=== PATIENT | female | born 1990 | race Caucasian/White ===

== ENCOUNTER 2019-10-27 13:28 | Emergency (ER) | payer BC ==
[2019-10-27 13:51] VITALS: BP 111/60
--- NOTE | 2019-10-27 13:51 | UC ---
Throat Pain/Nasal Meño HPI - HPI Summary HPI Summary: 29 yo female presents with 2 complaints: 1) Was exposed to strep about 4-5 days ago. Last night pt had a very mild sore throat and felt warm - feels better today. Is asking for a strep test today. Nothing OTC for symptoms. Denies fever, chills, sinus symptoms, cough, rash, abdominal pain, n/v. She is eating, drinking, and tolerating po without difficulty. 2) For the last month has had small red bump in her left inguinal region. Has never enlarged or been painful. No drainage. - History of Current Complaint Chief Complaint: UCGeneralIllness Stated Complaint: SORE THROAT Time Seen by Provider: 10/27/19 13:51 Hx Obtained From: Patient Hx Last Menstrual Period: 10/26/19 Onset/Duration: Sudden Onset Severity: Mild Pain Intensity: 1 Pain Scale Used: 0-10 Numeric - Allergies/Home Medications Allergies/Adverse Reactions: Allergies Allergy/AdvReac Type Severity Reaction Status Date / Time No Known Allergies Allergy Verified 10/27/19 13:51 Home Medications: Home Medications Cabergoline 0.25 mg PO WEEKLY 10/27/19 [History Confirmed 10/27/19] PMH/Surg Hx/FS Hx/Imm Hx - Additional Past Medical History Additional PMH: None - Surgical History Surgical History: None Surgery Procedure, Year, and Place: DENIES - Family History Known Family History: Positive: None - Social History Occupation: Employed Full-time Lives: With Family Alcohol Use: None Substance Use Type: None Smoking Status (MU): Never Smoked Tobacco Review of Systems All Other Systems Reviewed And Are Negative: No Constitutional: Positive: Negative Skin: Positive: Other - red bump groin Eyes: Positive: Negative ENT: Positive: Sore Throat Respiratory: Positive: Negative Cardiovascular: Positive: Negative Gastrointestinal: Positive: Negative Neurological: Positive: Negative Psychological: Positive: Negative Physical Exam - Summary Physical Exam Summary: GENERAL: NAD. WDWN. No pain distress. SKIN: LEFT inguinal region with 4mm diameter area of faint erythema that is flat , nttp, and no warmth. Appears to be old scar HEENT: Head: AT/NC Eyes: EOM intact. Conjunctiva clear without inflammation or discharge. Ears: Hearing grossly normal. TMs intact, no bulging, erythema, or edema. Nose: Nasal mucosa pink and moist. NTTP maxillary and frontal sinus. Throat: Posterior oropharynx without exudates, erythema, or tonsillar enlargement. Uvula midline. NECK: Supple. Nontender. No lymphadenopathy. CHEST: CTAB. No accessory muscle use. Breathing comfortably and in no distress. CV: RRR. Pulses intact. Cap refill <2seconds NEURO: Alert. PSYCH: Age appropriate behavior. Triage Information Reviewed: Yes Vital Signs: Initial Vital Signs Temp 96.2 F 10/27/19 13:48 Pulse 69 10/27/19 13:48 Resp 20 10/27/19 13:48 BP 111/60 10/27/19 13:48 Pulse Ox 98 10/27/19 13:48 Vital Signs Reviewed: Yes Throat Pain/Nasal Course/Dx - Course Course Of Treatment: POC strep negative. Regarding the area in her groin, this appears that it was a small abscess that resolved and has some scarring of the superficial skin tissue. Advised to continue to monitor the area and f/u if it changes - Differential Dx/Diagnosis Provider Diagnosis: Sore throat Discharge ED - Sign-Out/Discharge Documenting (check all that apply): Patient Departure All imaging exams completed and their final reports reviewed: No Studies - Discharge Plan Condition: Stable Disposition: HOME Patient Education Materials: Pharyngitis (ED) Referrals: Flores Aguilera MD [Primary Care Provider] - Additional Instructions: Your strep test was negative today Your symptoms are likely from a viral infection. Viral infections do not respond to antibiotics and are limited to the treatment of symptoms. Viral infections typically run their course in 7-10 days. Drink plenty of fluids, especially if you are running any fever. Use salt water gargles several times a day. Take over the counter acetaminophen (Tylenol) or ibuprofen (Advil, Motrin) according to directions as needed for pain or fever. You may also use Chloraseptic spray or Cepacol lonzenges according to directions which contain a numbing medication and can provide some temporary relief from a sore throat. Return here or follow up with your primary care provider in 7 days if symptoms persist. - Billing Disposition and Condition Condition: STABLE Disposition: Home
== END 2019-10-27 14:19 | disposition home or self-care (01) ==
LOC: UCEAST 13:28
DX: J02.9 Acute pharyngitis, unspecified (principal)
CPT/HCPCS: 87651; 99211; G0463

== ENCOUNTER 2019-11-12 05:37 | Day surgery (SDC) | payer BC ==
[~2019-11-12 05:37] MED LIST: Buffered Lidocaine 1% SYRIN* 1 ML/SYRINGE INTRADERM ONE
[2019-11-12] MEDS ORDERED: HYDROmorphone INJ1* 1 MG/ML SYRINGE IV PRN (05:50)
[2019-11-12] MEDS ORDERED: oxyCODONE TAB* 5 MG TAB PO PRN (05:50)
[2019-11-12] MEDS ORDERED: Scopolamine 1.5 mg* PATCH TRANSDERM PRN (05:50)
[2019-11-12] MEDS ORDERED: fentaNYL* 50 MCG/ML 2 ML VIAL (100 MCG VIAL) IV PRN (05:50)
[2019-11-12] MEDS ORDERED: PROCHLORPERAZINE INJ 5 MG/ML 2 ML VIAL IV PRN (05:50)
[2019-11-12] MEDS ORDERED: Naloxone* 0.4 MG/ML 1 ML VIAL IV PRN (05:50)
[2019-11-12] MEDS ORDERED: DiMENhydriNATE IV* 50 MG/ML VIAL IV PUSH PRN (05:50)
[2019-11-12] MEDS ORDERED: Ondansetron ODT TAB* 4 MG ONE (05:51)
[2019-11-12] MEDS ORDERED: Famotidine IV* 10 MG/ML 2 ML (20 mg) ONE (05:51)
[2019-11-12] MEDS ORDERED: Dexamethasone TAB* 4 MG ONE (05:51)
[2019-11-12] MEDS ORDERED: Dexamethasone TAB* 4 MG PO ONE (06:00)
[2019-11-12] MEDS ORDERED: Famotidine IV* 10 MG/ML 2 ML (20 mg) IV ONE (06:00)
[2019-11-12] MEDS ORDERED: Lactated Ringers 1000 ML Bag* 1,000 ML IV SCH (06:00)
[2019-11-12] MEDS ORDERED: Ondansetron ODT TAB* 4 MG PO ONE (06:00)
[2019-11-12] MEDS ORDERED: Bupivacaine 0.5%* 50 ML MDV VIAL ONE (07:08)
[2019-11-12] MEDS ORDERED: KETAMINE HCL* 50 MG/ML 10 ML VIAL ONE (07:14)
[2019-11-12] MEDS ORDERED: Midazolam* 1 MG/ML 5 ML VIAL (5 MG) ONE (07:14)
[2019-11-12] MEDS ORDERED: fentaNYL* 50 MCG/ML 2 ML VIAL (100 MCG VIAL) ONE ×2 (07:14→08:55)
[2019-11-12] MEDS ORDERED: Acetaminophen IV 1GM/100ML * 100 ML ONE (07:54)
[2019-11-12] MEDS ORDERED: Propofol* 10 MG/ML 20 ML BTL ONE (07:54)
[2019-11-12] MEDS ORDERED: Ketorolac INJ* 30 MG/ML 1 ML VIAL ONE (07:54)
[2019-11-12] MEDS ORDERED: ROPIVACAINE 5 MG/ML 30 ML BTL (0.5%) ONE (08:24)
[2019-11-12] MEDS ORDERED: Lidocaine 2% PF * 5 ML VIAL ONE (08:24)
[2019-11-12] MEDS ORDERED: HYDROmorphone INJ1* 1 MG/ML SYRINGE ONE (09:42)
--- NOTE | 2019-11-12 12:10 | OP ---
Operative Report - Blank - Operative Report Date of Operation: 11/12/19 Note: PATIENT: Ny Quiñonez DATE OF : 1990 DATE OF SURGERY: 11/12/2019 SURGEON: Lit Casper MD REWRITER: REINALDO Owens, whos assistance was necessary for positioning, retraction, help with instrumentation, and closure. ANESTHESIOLOGIST: Dr. 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 POSTOPERATIVE DIAGNOSIS: Left talus cystic osteochondral lesion, left ankle instability and left ankle ganglion cyst. OPERATION: 1. Left tibial osteotomy. 2. Left talar cyst curettage with bone autografting from the proximal tibia. 3. Implantation of juvenile particulated allograft cartilage to the talus. 3. Left ankle modified Brostrom procedure lateral ligament reconstruction. 4. Excision of left ankle ganglion cyst. ANESTHESIA: General + block IMPLANTS: Three arthrex 4.0mm screws TOURNIQUET TIME: 2 hours with a well-padded thigh tourniquet at 250 mmHg SPECIMENS: none ESTIMATED BLOOD LOSS: minimal COMPLICATIONS: none STATUS: Stable from the operating room to the recovery room and then home. INDICATIONS FOR PROCEDURE: Ny has had persistent left ankle pain and instability. Both operative and non operative treatment alternatives were reviewed. Further, the nature and risks of surgery were reviewed in careful detail, in the office as well as the pre-operative holding area. Our discussions regarding the risks of surgery included, but were not limited to, infection, wound problems, nerve injury, neuroma, RSD, persistent symptoms, persistent instability, nonunion, malunion, blood clot, arthritis, need for further surgery, failure of the surgery, and even the remote chance of catastrophic complication. DESCRIPTION OF PROCEDURE: The patient was seen in the preoperative holding unit and informed written consent was obtained. The appropriate extremity was marked. The patient was then brought to the operating room and carefully positioned on the operating room table. Anesthesia was induced. All bony prominences were padded with great care. A well-padded thigh tourniquet was placed. A chlorhexidine based pre- scrub was performed followed by a chloraprep prep and drape in standard sterile fashion. A surgical safety pause was then conducted in which we confirmed the appropriate patient, extremity, planned procedure, availability of equipment, indication and administration of prophylactic antibiotics, and DVT prophylaxis in the form of a compression boot on the non-surgical extremity. An Esmarch exsanguination of the limb was then performed and the tourniquet inflated. A medial longitudinal incision was made over the medial malleolus and distal tibia. The entire medial malleolus was exposed in preparation for the osteotomy. Two guide pins were placed parallel to the tibiotalar joint, at the level of the physeal scar. Another guidepin was placed retrograde up the medial malleolus, parallel to the medial gutter. The depths of the guidewires were checked and then the guidewires were overdrilled for later placement of 4.0 mm cannulated screws. I then placed a guidewire obliquely to plan out the osteotomy. This was checked under fluoroscopy. I then used an oscillating saw to osteotomize the medial tibia to the level of the physeal scar, while using cold irrigation. A large Lambotte osteotome was then placed into this osteotomy cut to complete the osteotomy into the tibiotalar joint. This made and an irregular osteochondral surface at the most distal portion of the osteotomy to later ease reduction of the osteotomy at the end of the case. The medial fragment of the osteotomy was windowed open, providing excellent visualization of the medial talus. The osteochondral lesion was easily identified and the cartilage caps was completely loose and delaminated. This cartilage was excised and I used a 15 blade scalpel to remove any overhanging cartilage. I used a 2.4 mm bur to enter into the cyst. There was gelatinous cystic fluid and the cyst. This was all curetted out back to bone. I then used a 2.4 mm bur to roughen up the edges of the cyst, as well as a K wire to drill holes into the bed of the cyst. I then turned my attention to the proximal tibia. A 3 cm incision was made over Gerdy's tubercle. I carefully dissected down to bone. The cortex was windowed with a bur and a curette was used to harvest cancellous autograft. I then irrigated the wound and packed the void with allograft cancellous bone chips. The wound was then closed in a layered fashion. I then turned my attention back to the ankle. The autograft bone was packed into the talar cyst. This was tamped tightly into the cyst. Once this was level with the subchondral bone, I placed some fibrin glue over the bone. I then implanted the juvenile articulated cartilage allograft and added more fibrin glue. We then waited 5 minutes for the fibrin glue to set. I then reduced the tibial osteotomy, and placed two partially threaded 4.0 mm cannulated screws at the physeal scar, which I had already drilled. The saw blade was placed into the oblique osteotomy during fixation of the osteotomy, so as to make sure I had an anatomic reduction. Finally, the fully threaded screw up the medial malleolus was placed. Final fluoroscopic images were obtained confirming excellent placement of the graft as well as anatomic reduction of the tibial osteotomy. The wound was then copiously irrigated. I then made a longitudinal incision overlying the distal fibula. This was made in line with the distal fibula and then curving anteriorly in line with the fourth ray. Dissection was carried down through the soft tissues. Superficial hemostasis was obtained. I dissected down to the lateral aspect of the fibula at the periosteal and ligamentous layer and then dissected anteriorly to expose the anterolateral ankle ligaments. We protected the superficial peroneal nerve at all times, which was not visualized within our field. Once we had adequately exposed a pocket anterior to the ligaments, we sharply took the ligaments down off of the anterior and distal aspect of the fibula using a 15 blade. The inferior extensor retinaculum was exposed and protected for subsequent repair later in the procedure. The ganglion cyst was encountered and excised. The stalk tracking back to the ankle joint was coagulated with electrocautery. I then utilized a rongeur to make a trough along the fibula to receive the reconstructed ligaments. I then utilized 2 Arthrex fiber tack suture anchors to repair the lateral ligaments. These sutures were all passed with great care taken to appropriately tension both the ATFL as well as the CFL in order to get a nice tight repair. We held the ankle in a dorsiflexed and everted position while the ligaments and sutures were tied down. These held the ankle in a much improved position with excellent tension on the ligaments. We further augmented the repair by bringing the inferior extensor retinaculum up to the fibula. There was a much improved anterior drawer at this point as compared to pre-operatively. The wound was copiously irrigated. 0 Vicryl was used to close the sheath around the posterior tibial tendon as well as the periosteum. The wounds were then copiously irrigated. The wounds were then closed in a layered fashion utilizing 3-0 Monocryl and 3-0 nylon. At this point, a sterile dressing was applied and the ankle was splinted in a neutral position. The patient was then awakened from anesthesia and transferred to the recovery room in stable condition. There were no complications. All needle and sponge counts were correct at the end of the case. ATTESTATION: I attest I was present and scrubbed and performed the critical portions of the procedure myself. POSTOPERATIVE PLAN: The patient will remain nonweightbearing for at least six weeks. Follow up will be in two weeks for likely suture removal, Steri-Strip application and transition into a short leg cast. We will use aspirin for DVT prophylaxis.
[2019-11-12] MEDS ORDERED: Scopolamine 1.5 mg* PATCH ONE (12:19)
[2019-11-12 13:24] VITALS: BP 104/67
[2019-11-15] MEDS ORDERED: Scopolamine PATCH Remove* 1 NOTE MISC PATCH OFF ONE (05:51)
== END 2019-11-12 14:13 | disposition home or self-care (01) ==
LOC: OR 05:37
PROVIDERS: ATTEND Orthopaedic Surgery
DX: M93.272 Osteochondritis dissecans, left ankle and joints of left foot (principal); M25.372 Other instability, left ankle; M67.472 Ganglion, left ankle and foot; G89.18 Other acute postprocedural pain
CPT/HCPCS: 81025; A9270-GY; C1713; C1776; J1170; J1885; J2250; J2704; J2795; J3010; J3490; J8540; L8699

== ENCOUNTER 2023-04-29 17:27 | Inpatient (IN) ==
[2023-04-29] MEDS ORDERED: Promethazine INJ(RESTRICTED) 25 MG/ML 1 ml VIAL IV PRN (19:29)
[2023-04-29] MEDS ORDERED: Buffered Lidocaine 1% SYRIN 1 ml INTRADERM ONE (19:29)
[2023-04-29] MEDS ORDERED: Lactated Ringers 1000 ml BAG 1,000 ML IV ONE ×2 (19:29→22:04)
[2023-04-29 20:10] LABS: ABS Basophils 0.1 10^3/uL (0.0-0.1); ABS Lymphocytes 1.2 10^3/uL (1.0-4.8); ABS Monocytes 0.7 10^3/uL (0.0-0.9); ABS Neutrophils 14.9 10^3/uL (1.5-7.6); ABS Nucleated RBC 0.01 10^3/ul; Eosinophil % 0.1 %; Hematocrit 34.4 % (35-45); Hemoglobin 11.3 g/dL (11.5-14.3); Lymphocyte % 7.3 %; Mean Corpuscular Hemoglobin 27.6 pg (27-33); Mean Corpuscular Hgb Conc 32.8 g/dL (31-36); Mean Corpuscular Volume 84.1 fL (80-97); Mean Platelet Volume 8.6 fL (7.5-11.2); Nucleated Red Blood Cells % 0.1 /100 WBC (0.0-0.4); Platelet Count 270 10^3/uL (150-450); Red Blood Count 4.09 10^6/uL (3.63-4.92); Red Cell Distribution Width 16.6 % (12-17); White Blood Count 16.9 10^3/uL (3.8-11.8)
[2023-04-29 20:35] LABS: Urine Benzodiazepine Screen None Detected (None Detect); Urine Cannabinoids Screen None Detected (None Detect); Urine Opiates Screen None Detected (None Detect)
[2023-04-29] MEDS ORDERED: Lidocaine 1.5% EPI 1:200,000 30 ML SDV ONE (21:26)
[2023-04-29] MEDS ORDERED: OBEPIDURAL (200 ML) 200 ML EPIDURAL ONE (21:28)
[2023-04-29] MEDS ORDERED: Sodium Citrate/Citric Acid LIQ 15 ML UDC PO PRN (22:04)
[2023-04-29] MEDS ORDERED: Phenylephrine 40 mcg/mL 10mL (400mcg) SYRINGE IV PUSH PRN ×2 (22:04)
[2023-04-29] MEDS: Lactated Ringers 1000 ml BAG 1,000 ML IV SCH (22:31)
[2023-04-29 22:55] LABS: Urine Appearance Cloudy; Urine Bilirubin Negative (Negative); Urine Blood Negative (Negative); Urine Color Yellow; Urine Glucose Negative (Negative); Urine Ketones Negative (Negative); Urine Nitrite Negative (Negative); Urine Protein 3+(>=500 mg/dL) (Negative); Urine Specific Gravity 1.023 (1.002-1.030); Urine Urobilinogen Negative (Negative)
[2023-04-29 23:00] LABS: Urine Bacteria Absent (Absent); Urine Red Blood Cell 3+(>10/hpf) (Absent); Urine Squamous Epithelial Cell Present (Absent); Urine White Blood Cell Trace(0-5/hpf) (Absent)
[2023-04-29] MEDS ORDERED: Lactated Ringers 1000 ml BAG 1,000 ML IV SCH (23:00)
[2023-04-29] MEDS ORDERED: OBEPIDURAL (200 ML) 200 ML EPIDURAL SCH (23:00)
[2023-04-30] MEDS: Lactated Ringers 1000 ml BAG 1,000 ML IV SCH (01:26)
[2023-04-30] MEDS ORDERED: Oxytocin in LR 0 MILLI.UNIT/0 ML BAG IV ONE (05:04)
[2023-04-30] MEDS ORDERED: Witch Hazel PAD JAR TOPICAL PRN (06:04)
[2023-04-30] MEDS ORDERED: Glycerin ADULT 2.4 gm SUPP PR PRN (06:04)
[2023-04-30] MEDS: Dibucaine 1% OINT 28.35 GM TUBE PR PRN ×2 (06:42→18:11)
[2023-04-30] MEDS ORDERED: Lactated Ringers 1000 ml BAG 1,000 ML IV SCH (07:00)
[2023-05-01 07:08] LABS: ABS Lymphocytes 2.7 10^3/uL (1.0-4.8); ABS Monocytes 0.8 10^3/uL (0.0-0.9); ABS Neutrophils 12.2 10^3/uL (1.5-7.6); Eosinophil % 0.3 %; Hematocrit 26.6 % (35-45); Hemoglobin 8.8 g/dL (11.5-14.3); Mean Corpuscular Hemoglobin 27.8 pg (27-33); Mean Corpuscular Hgb Conc 33.1 g/dL (31-36); Mean Platelet Volume 7.9 fL (7.5-11.2); Platelet Count 194 10^3/uL (150-450); Red Blood Count 3.17 10^6/uL (3.63-4.92); Red Cell Distribution Width 16.6 % (12-17); White Blood Count 15.7 10^3/uL (3.8-11.8)
[2023-05-01 07:36] LABS: Albumin 2.6 g/dL (3.2-5.2); Albumin/Globulin Ratio 1.1 (1-3); Calcium 8.1 mg/dL (8.6-10.3); Creatinine, Serum 0.65 mg/dL (0.51-0.95); Globulin 2.4 g/dL (2-4); Potassium 4.5 mmol/L (3.5-5.0); Total Bilirubin 0.3 mg/dL (0.2-1.0); eGFR CKD-EPI 117.7 (>60)
[2023-05-01] MEDS: Dibucaine 1% OINT 28.35 GM TUBE PR PRN (14:38)
[2023-05-02] MEDS: Dibucaine 1% OINT 28.35 GM TUBE PR PRN (08:30)
[2023-05-02] MEDS ORDERED: Varicella Virus Vaccine Live 0.5 ML VIAL SUBCUT ONE (09:00)
[2023-05-02 09:47] VITALS: BP 149/75
== END 2023-05-02 11:15 | disposition home or self-care (01) | DRG 807 ==
LOC: MCHOBOUT 17:27 → MCHOB 18:32
PROVIDERS: ADMIT Advanced Practice Midwife; ATTEND Advanced Practice Midwife